=== PATIENT | female | born 1980 | race Caucasian/White ===

== ENCOUNTER 2017-11-12 00:32 | Emergency (ER) | payer MEDICAID, OTHER ==
[2017-11-12] MEDS: HYDROCODONE/APAP (5/325) TAB PO (03:56)
== END 2017-11-12 06:00 | disposition home or self-care (01) ==
LOC: FTE 00:32
DX: S63.501A Unspecified sprain of right wrist, initial encounter (principal); R07.9 Chest pain, unspecified; V73.5XXA Driver of bus injured in collision with car, pick-up truck or van in traffic accident, initial encounter
CPT/HCPCS: 29125; 73100; 73120; 93005; 99284-25

== ENCOUNTER 2018-04-05 14:26 | Emergency (ER) | payer MEDICAID | END 2018-04-05 17:05 | disposition home or self-care (01) | LOC: FTE 14:26 | DX: H60.503 Unspecified acute noninfective otitis externa, bilateral (principal); J00 Acute nasopharyngitis [common cold]; B00.1 Herpesviral vesicular dermatitis | CPT/HCPCS: 99283; Z7502 ==